=== PATIENT | female | born 1990 | race Hispanic/Latino ===

== ENCOUNTER 2017-06-26 19:46 | Emergency (ER) | payer OTHER, SELFPAY ==
[2017-06-26] MEDS ORDERED: Promethazine HCl 25 MG/ML VIAL ONE (23:24)
[2017-06-26] MEDS ORDERED: diphenhydrAMINE HCl 50 MG/ML 1 ML VIAL ONE (23:24)
[2017-06-26 23:38] LABS: #Eosinphils 0.3 thou/uL (0.0-0.7); #Lymphocytes 2.8 thou/uL (1.20-3.40); #Monocytes 0.6 thou/uL (0.11-0.59); #Neutrophils 4.8 thou/uL (1.40-6.50); %Basophils 0.5 % (0.0-1.0); %Eosinophils 3.5 % (0.0-10.0); Hematocrit 40.3 % (36.0-47.0); Mean Platelet Volume 8.9 fL (7.4-10.4); Red Blood Cell (RBC) Count 4.32 mill/uL (4.20-5.40); White Blood Cell (WBC) Count 8.5 thou/uL (4.8-10.8)
[2017-06-26 23:50] LABS: Bilirubin Negative (Negative); Blood, Urine Negative (Negative); Glucose, Urine (Dipstick) Negative (Negative); Ketone, Urine 15 mg/dL (Negative); Nitrite Negative (Negative); Protein, Urine (Dipstick) Negative (Neg-Trace)
[2017-06-26 23:56] LABS: Bacteria/HPF Rare-Few HPF (None Seen); Hyaline Casts/LPF 0-3 HYALINE CAST LPF (0-3 Hyaline); RBC/HPF 0-3 HPF (0-3); WBC/HPF 21-50 HPF (0-3)
[2017-06-27 00:06] LABS: Sperm/HPF None Seen HPF (None Seen)
[2017-06-27 00:15] LABS: ALT (SGPT) 16 U/L (8-55); AST (SGOT) 16 U/L (5-34); Alkaline Phosphatase 52 U/L (40-150); Anion Gap 13 mmol/L (10-20); BUN (Urea Nitrogen) 7 mg/dL (7.0-18.7); Bilirubin, Total 0.4 mg/dL (0.2-1.2); Calc. Creatinine Clearance 0 mL/min (70-130); Calcium 9.4 mg/dL (7.8-10.44); Carbon Dioxide 21 mmol/L (22-29); Chloride 105 mmol/L (98-107); Estimated GFR-MDRD Greater than 90; Globulin 3.2 g/dL (2.4-3.5); Protein, Total 7.2 g/dL (6.0-8.3)
[2017-06-27] MEDS ORDERED: Sodium Chloride 0.9% 100 ML ONE (00:36)
[2017-06-27] MEDS ORDERED: cefTRIAXone\\ROCEPHIN 1 GM VIAL ONE (00:36)
== END 2017-06-27 00:57 | disposition home or self-care (01) ==
LOC: ERS 19:46
DX: O99.281 Endocrine, nutritional and metabolic diseases complicating pregnancy, first trimester (principal); E86.0 Dehydration; O23.41 Unspecified infection of urinary tract in pregnancy, first trimester; O99.351 Diseases of the nervous system complicating pregnancy, first trimester; G43.909 Migraine, unspecified, not intractable, without status migrainosus; Z3A.10 10 weeks gestation of pregnancy
CPT/HCPCS: 80053; 81003; 81015; 85025; 85652; 86140; 87086; 96361; 96365; 96375; J0696; J1200; J2550; J7050

== ENCOUNTER 2017-09-21 20:32 | Day surgery (SDC) | payer OTHER ==
[2017-09-21 21:35] VITALS: BMI 40.6
[2017-09-21 21:58] LABS: Bilirubin Negative (Negative); Blood, Urine Negative (Negative); Clarity CLOUDY (Clear); Glucose, Urine (Dipstick) Negative (Negative); Leukocyte Moderate (Negative); Nitrite Negative (Negative); Protein, Urine (Dipstick) Negative (Neg-Trace); Specific Gravity, Urine 1.025 (1.002-1.036); pH, Urine 7.5 (5.0-9.0)
[2017-09-21 21:59] LABS: Bacteria/HPF 1+ HPF (None Seen); Hyaline Casts/LPF 0-3 HYALINE CAST LPF (0-3 Hyaline); Pathc Cast-AUWi Flag 0.27 (0-2.49); RBC/HPF 0-3 HPF (0-3); Squamous Epithelial 0-3 HPF (0-3); WBC/HPF 21-50 HPF (0-3)
[2017-09-22] MEDS ORDERED: Nitrofurantoin Monohyd/M-Cryst 100 MG CAP PO STA (00:02)
== END 2017-09-22 00:40 | disposition home or self-care (01) ==
LOC: L&D/OP 20:32
PROVIDERS: ATTEND Family Medicine
DX: O99.89 Other specified diseases and conditions complicating pregnancy, childbirth and the puerperium (principal); R10.30 Lower abdominal pain, unspecified; M54.9 Dorsalgia, unspecified; R03.0 Elevated blood-pressure reading, without diagnosis of hypertension; Z3A.22 22 weeks gestation of pregnancy; Z79.82 Long term (current) use of aspirin; Z79.899 Other long term (current) drug therapy; Z91.013 Allergy to seafood; Z98.890 Other specified postprocedural states
CPT/HCPCS: 81003; 81015; 87086; 87480; 87510; 87660; 99284

== ENCOUNTER 2017-10-09 10:10 | Emergency (ER) | payer OTHER ==
[2017-10-09] MEDS ORDERED: Insulin Regular 300 UNITS/3 ML VIAL ONE (12:27)
[2017-10-09] MEDS ORDERED: Dexamethasone 4 MG TAB PO SCH (13:15)
[2017-10-09] MEDS ORDERED: Dexamethasone 4 MG TAB ONE (13:22)
== END 2017-10-09 13:26 | disposition home or self-care (01) ==
LOC: ERS 10:10
DX: O99.512 Diseases of the respiratory system complicating pregnancy, second trimester (principal); J45.909 Unspecified asthma, uncomplicated; J98.8 Other specified respiratory disorders; Z3A.24 24 weeks gestation of pregnancy
CPT/HCPCS: 87804; J1815; J7620; J8540

== ENCOUNTER 2017-11-30 20:33 | Day surgery (SDC) | payer OTHER ==
[2017-11-30 21:04] VITALS: BP 119/64; TEMP 99.3; BMI 44.3
--- NOTE | 2017-11-30 21:51 | PDOC.LDHP ---
Labor and Delivery H&P Chief complaint: other (JENKINS and elevated BP at home 147/) HPI: 27yo at 32w2d by 7w sono here for elevated BP and JENKINS. Has cuff at home , monitors BPs and will get elevations in mild range on regular basis as well as in clinic. Today on wrist home cuff got 152/102 and 148/83. Pt noted JENKINS all day, has taken 500mg tylenol x 1 without relief. Denies scotomata, RUQ pain. Good FM. No ctx VB LOF. Current gestational age (weeks): 32 Due date: 01/23/18 Dating criteria: first trimester ultrasound Grav: 2 Para: 1 OB History Details: h/o GHTN at term last Prior CS for CPD Abnormal US findings: No Past Medical History: CHTN based on elevated BPs since 13 wk this Obesity Asthma Previous surgical history: low tranverse CS Allergies/Adverse Reactions: Allergies Allergy/AdvReac Type Severity Reaction Status Date / Time shrimp Allergy Severe Anaphylaxis Verified 09/21/17 21:31 Social history: none - Physical Exam Vital signs reviewed and normal: yes General: NAD Heart: RRR Lungs: CTAB Abdomen: gravid Extremeties: no edema FHT: category 1 [place] contractions every: quite - OB Labs Blood type: O RH: positive Antibody Screen: negative HIV: negative RPR: negative HEPSAg: negative 1 hour GCT: negative Rubella: immune - Assessment 27yo at 32w2d by 7w sono with CHTN and JENKINS and GERD sx. Elevated BP x 1 due to cuff malpositioning, all others wnl on serial measurements in triage x 1.5 hr. No evidence of SIPIH. Rec pt to take tylenol 2 tabs or benadryl for JENKINS. Cont BP log at home, bring cuff to next clinic visit to ensure accurate readings. Continued PIH warnings given. Tums for heartburn sx. FHT reassuring for gestational age. FU next week at [facility].
== END 2017-11-30 22:10 | disposition home or self-care (01) ==
LOC: L&D/OP 20:33
PROVIDERS: ATTEND Student in an Organized Health Care Education/Training Program
DX: O13.3 Gestational [pregnancy-induced] hypertension without significant proteinuria, third trimester (principal); O99.513 Diseases of the respiratory system complicating pregnancy, third trimester; J45.909 Unspecified asthma, uncomplicated; O99.613 Diseases of the digestive system complicating pregnancy, third trimester; K21.9 Gastro-esophageal reflux disease without esophagitis; O99.213 Obesity complicating pregnancy, third trimester; E66.9 Obesity, unspecified; Z68.44 Body mass index [BMI] 60.0-69.9, adult; Z91.013 Allergy to seafood; Z3A.32 32 weeks gestation of pregnancy; Z79.82 Long term (current) use of aspirin; Z79.899 Other long term (current) drug therapy
CPT/HCPCS: 59025; 99282

== ENCOUNTER 2018-01-09 16:03 | Inpatient (IN) | payer MEDICAID, OTHER, SELFPAY ==
[2018-01-09 16:25] VITALS: BMI 45.7
[2018-01-09 18:47] LABS: #Eosinphils 0.1 thou/uL (0.0-0.7); #Lymphocytes 2.3 thou/uL (1.20-3.40); #Monocytes 0.7 thou/uL (0.11-0.59); #Neutrophils 7.3 thou/uL (1.40-6.50); %Basophils 0.1 % (0.0-1.0); %Lymphocytes 21.8 % (21.0-51.0); %Monocytes 6.3 % (0.0-10.0); %Neutrophils 70.7 % (42.0-75.0); Hemoglobin 13.3 g/dL (12.0-16.0); Mean Corpuscular HGB CONC 33.6 g/dL (32.0-36.0); Mean Corpuscular Hemoglobin 29.6 pg (27.0-31.0); Mean Platelet Volume 8.4 fL (7.4-10.4); Platelet Count 231 thou/uL (130-400); RBC Distribution Width 13.7 % (11.5-14.5); White Blood Cell (WBC) Count 10.3 thou/uL (4.8-10.8)
--- NOTE | 2018-01-09 18:49 | PDOC.LDHP ---
Labor and Delivery H&P Chief complaint: other (Sent over from [facility] for elevated BP, rule out pre-e) HPI: 27 yo @ 38 weeks dated by 7 wk u/s comes in after having elevated BP at [facility] this afternoon. Pt reports having headache but thinks it is due to her being hungry. Had headache yesterday as well. Denies any vision changes or dizziness. Reports having swelling in feet, hands and nose. Also reports having some RUQ and right back pain. Reports irregular contractions at night. Denies any LOF, bleeding, or urinary sx's. Reports normal vaginal discharge. Current gestational age (weeks): 38 Due date: 01/23/18 Dating criteria: first trimester ultrasound Grav: 2 Para: 1 OB History Details: Hx of pre-eclampsia in prior Vaginitis infections Current complications: gestational hypertension Abnormal US findings: No Past Medical History: Asthma, Viral Meningitis infection back in February 2017 Current medications: pre-israel vitamins Previous surgical history: low tranverse CS, other (r. ankle surgery (2002)) - Physical Exam Vital signs reviewed and normal: yes Abnormal vital signs: Had one abnormal BP General: NAD Heart: RRR Lungs: CTAB Abdomen: other (Mild tenderness to palpation in RUQ and some mild pain on palpation of R. back) Extremeties: trace edema FHT: category 1 [place] contractions every: No contractions noted - OB Labs Blood type: O RH: positive Antibody Screen: negative HIV: negative RPR: negative HEPSAg: negative 1 hour GCT: negative GBS: unknown Rubella: non-immune - Assessment Rule out preeclampsia - Plan Plan: observation in L&D -: 27yo at 32w2d by 7w sono with CHTN and JENKINS -CMP, CBC, uric acid, urine protein, urine creatinine pending Elevated BP x 1 due to cuff malpositioning and while I was examining her. all others wnl on serial measurements in triage x 2hr. Will continue FHT monitoring and continue BP checks. Once labs get back, possibly let go home. Will let patient eat at this time and sees if helps with headache FHT reassuring for gestational age. Prior C/S -Plan for repeat Hx Pre-E -Took ppx aspirin prior in -Plan as above. <Anthony Gillespie - Last Filed: 04/24/18 19:18> <Irvin Luo - Hay Filed: 01/10/18 07:02> Allergies/Adverse Reactions: Allergies Allergy/AdvReac Type Severity Reaction Status Date / Time shrimp Allergy Severe Anaphylaxis Verified 09/21/17 21:31 Attending Addendum - Attending Addendum Date/Time: 01/10/18 0701 I personally evaluated the patient and discussed the management with Dr. Gillespie I agree with the History, Examination, Assessment and Plan documented above with any addition or exceptions noted below. <Irvin Luo - Hay Filed: 01/10/18 07:02>
[2018-01-09 19:07] LABS: ALT (SGPT) 16 U/L (8-55); AST (SGOT) 16 U/L (5-34); Albumin 3.6 g/dL (3.5-5.0); Alkaline Phosphatase 192 U/L (40-150); Anion Gap 14 mmol/L (10-20); BUN (Urea Nitrogen) 9 mg/dL (7.0-18.7); Bilirubin, Total 0.4 mg/dL (0.2-1.2); Calc. Creatinine Clearance 248 mL/min (70-130); Calcium 9.9 mg/dL (7.8-10.44); Carbon Dioxide 24 mmol/L (22-29); Chloride 104 mmol/L (98-107); Estimated GFR-MDRD Greater than 90; Globulin 3.3 g/dL (2.4-3.5); Glucose 76 mg/dL (70-105); Potassium 4.2 mmol/L (3.5-5.1); Protein, Total 6.9 g/dL (6.0-8.3); Sodium 138 mmol/L (136-145); Uric Acid 4.4 mg/dL (2.6-6.0)
[2018-01-09] MEDS ORDERED: Acetaminophen 325 MG TAB PO SCH (20:00)
[2018-01-09] MEDS ORDERED: Promethazine HCl 25 MG/ML VIAL IM PRN (23:32)
[2018-01-09] MEDS ORDERED: Ondansetron HCl/PF 4 MG/2 ML Vial IVP PRN (23:32)
[2018-01-09] MEDS ORDERED: Bicitra 30 ML UDCUP PO SCH (23:32)
[2018-01-09] MEDS ORDERED: Calcium Carbonate 500 MG ChewTAB PO PRN (23:32)
[2018-01-09] MEDS ORDERED: Acetaminophen 325 MG TAB PO PRN (23:32)
[2018-01-09] MEDS ORDERED: CEFAZOLIN/Water 2 GM/20 ML SYRINGE SLOW IVP SCH (23:32)
[2018-01-10 00:24] LABS: HBSAg Index 0.22 S/CO (0-0.99); Hep B Surf Ag Non-Reactive S/CO (NonReactive); Syphilis Antibody Nonreactive (Nonreactive); Syphilis Antibody Index 0.02 S/CO (<1.00 Non-Reactive)
[2018-01-10] MEDS ORDERED: Ondansetron HCl/PF 4 MG/2 ML Vial IVP PRN ×2 (06:51→07:52)
[2018-01-10] MEDS ORDERED: Lactated Ringer's 1,000 ML IV SCH (07:00)
[2018-01-10] MEDS ORDERED: Bupivacaine 0.75% W/DEXTROSE 8.25% 2 ML AMP ONE (07:46)
[2018-01-10] MEDS ORDERED: Metoclopramide HCl 10 MG/2 ML VIAL ONE (07:46)
[2018-01-10] MEDS ORDERED: Lidocaine 1% PF 5 ML VIAL ONE ×2 (07:47→08:15)
[2018-01-10] MEDS ORDERED: Oxytocin 10 UNITS/ML VIAL ONE ×2 (07:47→09:00)
[2018-01-10] MEDS ORDERED: Morphine PF 1 MG/ML SYR ONE (07:47)
[2018-01-10] MEDS ORDERED: Morphine Sulfate 2 MG/ML SYRINGE SLOW IVP PRN (07:51)
[2018-01-10] MEDS ORDERED: Ketorolac Tromethamine 30 MG/ML VIAL IVP PRN (07:52)
[2018-01-10] MEDS ORDERED: Naloxone HCl 0.4 mg/ml Vial IVP PRN ×2 (07:52)
[2018-01-10] MEDS ORDERED: Eucerin (Mineral Oil/Petrolatum,White) 30 gm Jar TOP PRN (07:52)
[2018-01-10] MEDS ORDERED: Naloxone HCl 0.4 mg/ml Vial IV PRN (07:52)
[2018-01-10] MEDS ORDERED: Promethazine HCl 25 MG/ML VIAL IM PRN (07:52)
[2018-01-10] MEDS ORDERED: Communication Order-Pharmacy FS SCH (08:00)
[2018-01-10] MEDS ORDERED: ePHEDrine/0.9% NaCl/PF SYRINGE 50 mg/10 ml ONE ×2 (08:00→12:31)
[2018-01-10 08:32] LABS: HIV (1/2) Antibody/Antigen Non-Reactive (NonReactive); HIV 1/2 INDEX 0.05 S/CO (<1.00)
[2018-01-10] MEDS ORDERED: Fentanyl 100 MCG/2 ML VIAL ONE (08:54)
[2018-01-10 08:58] LABS: Base Excess (BEa) -2.7 mEq/L (0 (+/-) 2.5)
--- NOTE | 2018-01-10 10:37 | PDOC.EVN ---
Event Note - Event Note Event Note: Postop Note Baby follow up: I was notified by nursery staff at approx 1010 this AM that the baby was found to have testicular torsion and hydrocele. Baby will be transferred to [facility]. Mother aware of findings.
--- NOTE | 2018-01-10 11:25 | OP ---
DATE OF SERVICE: 01/10/2018 FACULTY OPERATIVE NOTE FACULTY ATTESTATION INDICATION: In brief, I assumed call this morning at 0800 to find that this patient was scheduled for repeat as she had gestational hypertension at 38 weeks and a history of a prior . I arrived to find the patient already in the OR with the resident on-call (Dr. Leighton Quintero and Dr. Anthony Gillespie) already present. Anesthesia was present in the room. I assisted and scrubbed and participated with the surgery. PREOPERATIVE DIAGNOSES: 1. Prior x1. 2. A 38-week . 3. Gestational hypertension. POSTPROCEDURE DIAGNOSES: 1. Prior x1. 2. Status post repeat Pfannenstiel . PROCEDURES: 1. Repeat low transverse via Pfannenstiel. 2. Lysis of adhesions (1 cm thick uterine anterior serosal adhesion to the anterior abdominal wall). 3. Vacuum assisted delivery due to a nonengaged head (about 3 seconds of vacuum at 40 cm of water pressure). 4. Skin staple. SURGEON/STAFF: Renan Bateman M.D. RESIDENT: Leighton Quintero M.D. SAND BUFFER: Anthony Gillespie MD. ANESTHESIA: Spinal. ANTIBIOTICS: Ancef per protocol. IV fluids is about 2 liters crystalloid. URINE OUTPUT: Clear urine by Centeno (see OR record). ESTIMATED BLOOD LOSS: 600 mL COMPLICATIONS: None. FINDINGS: 1. vigorous male with a cord pH (arterial) of 7.23. 2. Please see full dictation by the residents. DESCRIPTION OF PROCEDURE: In brief, I assisted after the entry into the abdominal pelvic cavity was done. A thick anterior uterine adhesion was noted that was band like. I confirm that there was no bowel or other viscera attached to this and I put my finger around the adhesion to loop it. I then dissected this adhesion using Bovie cautery on cut mode without injury to surrounding structures. Hemostasis was assured. We were then able to place an Alfredito O retractor for delivery. Upon entry into the uterine cavity, it is a point to note that the baby's head was in a nonengaged station, therefore, after times by Dr. Quintero to deliver the head briefly, I called for a vacuum. A mushroom vacuum was applied for about 3 seconds at 40 mmHg without pop off. No complications were noted. No uterine extensions occurred during this delivery. Baby was vigorous. No nuchal cord was found. There were no complications with delivery. Uterus was closed in the usual fashion by the resident under my supervision and I assisted with closure as well. I was present until the skin was closed with ami. All counts were correct. Again, hemostasis was assured prior to closure at all levels. Please see the full dictation by the residents. MTDD
--- NOTE | 2018-01-10 11:53 | OP-2 ---
DATE OF PROCEDURE: 01/10/2018 RESIDENT SURGEON: Leighton Quintero M.D. ASSISTING SURGEON: Anthony Gillespie M.D. ATTENDING SURGEON: Renan Bateman M.D. PROCEDURE: Repeat low-transverse vacuum-assisted section. PREOPERATIVE DIAGNOSES: 1. Term intrauterine . 2. Gestational hypertension. 3. History of preeclampsia. POSTOPERATIVE DIAGNOSES: 1. Term intrauterine . 2. Gestational hypertension. 3. History of preeclampsia. 4. Wmlldeor-rw-yiknyp abdominal adhesions. 5. Thick 1 cm adhesion from anterior uterine fundus to anterior abdominal wall. ANESTHESIA: Spinal. INDICATIONS: Ms. Faisal Ordonez is a 27-year-old G2, P1-0-0-1 at 38.1 weeks ' gestation, who presented for L and D triage on 01/09/2018 for concern for gestational hypertension and preeclampsia rule out. She has a history of preeclampsia in previous that required delivery at 36 weeks. Blood pressures have been trending up in the clinic setting. Her laboratory data was negative; however, her blood pressures were mildly elevated overnight. She had been scheduled for repeat next week and after counseling elected to proceed today. PROCEDURE IN DETAIL: After risks, benefits, and alternatives were explained, the patient provided informed consent. Preoperative antibiotics of 2 grams cefazolin were administered. The patient was taken to the operating room and spinal anesthesia was initiated. She was prepped and draped in usual sterile fashion. A Pfannenstiel incision was made with scalpel and carried down to the level of fascia, which was sharply nicked. Subcutaneous fat was dissected away from the fascia bluntly. Fascial cut was extended bilaterally with Joy scissors. Inferior and superior edges of the fascia were elevated and from the rectus muscle bluntly and sharply. The rectus muscles were divided digitally and retracted manually. At this time, several filmy adhesions were noted between the peritoneum and uterus. The most prominent adhesion was an approximately 1 cm band between the anterior fundus and the anterior abdominal wall. After ensuring there was no bowel incorporated into this adhesion, it was released using Bovie cautery. An Alfredito O retractor was then placed. Bladder flap was created. A low-transverse score was made with scalpel. The uterus was entered bluntly with the Yankauer suction tip. Thin meconium-stained fluid was noted. The head was unable to be engaged in the hysterotomy, therefore a vacuum was applied. Maximum pressure was 40 cm of water and it was applied for approximately 3 seconds. One pull was needed to extract the child. No pop-offs occurred. Remainder of the body was delivered without difficulty. Cord was cut and clamped. Cord gas segment was obtained as was cord blood. The was handed to the awaiting team. Apgars were 8 and 9 at 1 and 5 minutes respectively and the arterial pH at time of delivery was 7.24. The edges of the hysterotomy were identified and closed using a #1 Monocryl suture in the running-locking fashion. One hyjgcd-yx-iefdz stitch was needed to achieve hemostasis along the left apex of the hysterotomy. The hysterotomy was inspected and noted to be hemostatic at this time. The site of the adhesion release of the former adhesion was inspected and hemostasis was achieved with Bovie cautery. The abdominal cavity was irrigated and suctioned. No clots or bleeding are noted at this time. Fascia was closed using a running, nonlocking 0 PDS. Subcutaneous fat was closed using a 2-0 plain gut suture in the running, nonlocking fashion. Skin was reapproximated with ami. The patient tolerated the procedure well and was taken to the recovery room in stable condition. START TIME: 0830 hours. INFANT DELIVERY TIME: 0848 hours. ESTIMATED BLOOD LOSS: 750 mL. COMPLICATIONS: None. SPECIMENS: Cord blood and segments collected and sent for blood type and cord gas analysis. FINDINGS: Grossly normal what presumed to be LGA viable male infant with Apgars of 8 and 9 at 1 and 5 minutes respectively. Grossly normal placenta with 3-vessel cord discarded. DRAINS: Centeno catheter draining clear urine. TOTAL FLUIDS GIVEN DURING THE PROCEDURE: 2000 mL crystalloid. MTDD
[2018-01-10] MEDS ORDERED: Meperidine HCl/PF 25 MG/ML VIAL IM PRN (12:05)
[2018-01-10] MEDS: Lactated Ringer's 1,000 ML IV SCH ×2 (12:08→17:50)
[2018-01-10] MEDS: diphenhydrAMINE 25 MG CAP PO PRN (23:30)
[2018-01-11] MEDS: Lactated Ringer's 1,000 ML IV SCH ×3 (01:39→15:17)
[2018-01-11] MEDS: Docusate Calcium (SURFAK) 240 MG CAP PO SCH ×3 (01:39→21:34)
[2018-01-11] MEDS: Simethicone Chewable 80 MG TAB PO PRN ×4 (03:42→21:34)
[2018-01-11 05:23] LABS: Hemoglobin 12.4 g/dL (12.0-16.0); Mean Corpuscular HGB CONC 33.7 g/dL (32.0-36.0); Mean Corpuscular Hemoglobin 29.7 pg (27.0-31.0); Mean Corpuscular Volume 87.9 fl (81.0-99.0); Mean Platelet Volume 7.8 fL (7.4-10.4); Platelet Count 217 thou/uL (130-400); RBC Distribution Width 13.8 % (11.5-14.5); Red Blood Cell (RBC) Count 4.18 mill/uL (4.20-5.40); White Blood Cell (WBC) Count 11.4 thou/uL (4.8-10.8)
--- NOTE | 2018-01-11 06:39 | PDOC.PP ---
Post Progress Note Post Day #: 2 Subjective: CC: Anxious HPI: Patient anxious to go to [facility] to be with her child. Informed provider that torsion was likely outside of 6 hour window and they were unable to salvage testicle. Informed her she would likely need additional stay in hospital since she had a C/S and had extensive adhesions. PO intake tolerated: yes Flatus: yes Ambulation: yes Vital Signs (12 hours) Temp Pulse Resp BP BP 01/11/18 06:00 18 01/11/18 03:30 97.5 F L 104 H 20 119/60 01/11/18 02:00 18 01/10/18 23:40 98.6 F 111 H 18 106/56 L 01/10/18 22:00 20 01/10/18 19:30 98.7 F 109 H 20 116/66 Weight Weight 109.769 kg - Physical Examination General: NAD Cardiovascular: no m/r/g, RRR Respiratory: clear to auscultation bilaterally, non-labored breathing Abdominal: + bowel sounds, lochia, appropriately TTP Extremities: negative homans (B) Skin: CS incision dry & intact, no rash Neurological: no gross focal deficits Psychiatric: A&Ox3, normal affect Result Diagrams: 01/11/18 05:08 01/09/18 17:57 Additional Labs: Post Labs Blood Type O POSITIVE 01/09/18 17:56 Hep Bs Antigen Non-Reactive S/CO (NonReactive) 01/09/18 21:23 (1) Gestational hypertension Code(s): O13.9 - GESTATIONAL HTN W/O SIGNIFICANT PROTEINURIA, UNSP TRIMESTER Status: Acute QualifierTitle: Trimester: third trimester Qualified Code(s): O13.3 - Gestational [-induced] hypertension without significant proteinuria, third trimester Comment: s/p C/S at 38.1 weeks. Progessing well. BP WNL. Pain controlled. If BP remain normal, will start NSAIDs for pain management. Plan for d/c tomorrow or Monday. (2) delivery delivered Code(s): O82 - ENCOUNTER FOR DELIVERY WITHOUT INDICATION Status: Acute Comment: extensive adhesions during surgery. monitor for signs of ileus. <Leighton Quintero - Last Filed: 01/11/18 06:37> Vital Signs (12 hours) Temp Pulse Resp BP BP 01/11/18 06:00 18 01/11/18 03:30 97.5 F L 104 H 20 119/60 01/11/18 02:00 18 01/10/18 23:40 98.6 F 111 H 18 106/56 L 01/10/18 22:00 20 01/10/18 19:30 98.7 F 109 H 20 116/66 Weight Weight 242 lb Result Diagrams: 01/11/18 05:08 01/09/18 17:57 Additional Labs: Post Labs Blood Type O POSITIVE 01/09/18 17:56 Hep Bs Antigen Non-Reactive S/CO (NonReactive) 01/09/18 21:23 (1) delivery delivered Code(s): O82 - ENCOUNTER FOR DELIVERY WITHOUT INDICATION Status: Acute Comment: extensive adhesions during surgery. monitor for signs of ileus. - Assessment/Plan Faculty note: Patient seen at bedside with residents. Baby had the surgery yesterday for testicular torsion..not able to save testes. Mother is well. Incision C/D/I with ami. Sarah po. Ambulate today. Testicular torsion inutero reviewed with her in Pashto by me. <Renan Bateman - Last Filed: 01/11/18 06:53>
[2018-01-11] MEDS: HYDROcodone/Acetaminophen 5/325 mg Tablet PO PRN ×3 (08:42→21:35)
[2018-01-11] MEDS: Prenatal Vitamin 1 TAB PO SCH (08:42)
[2018-01-12] MEDS: diphenhydrAMINE 25 MG CAP PO PRN (00:04)
[2018-01-12] MEDS: Lactated Ringer's 1,000 ML IV SCH ×2 (02:46→15:55)
[2018-01-12] MEDS: HYDROcodone/Acetaminophen 5/325 mg Tablet PO PRN ×3 (04:04→19:55)
[2018-01-12] MEDS: Simethicone Chewable 80 MG TAB PO PRN (04:05)
--- NOTE | 2018-01-12 07:23 | PDOC.PP ---
Post Progress Note Post Day #: 2 Subjective: CC: Mild pain HPI: No concerns. Eager to go home since her son may be discharged today. reports mild pain with walking. Denies fever or chills. PO intake tolerated: yes Flatus: yes Ambulation: yes Vital Signs (12 hours) Temp Pulse Resp BP Pulse Ox 01/12/18 04:05 98.1 F 113 H 20 123/65 96 01/11/18 23:43 98.7 F 105 H 18 118/63 97 01/11/18 20:05 98.7 F 104 H 18 121/68 97 Weight Weight 109.769 kg - Physical Examination General: NAD Cardiovascular: no m/r/g, RRR Respiratory: clear to auscultation bilaterally, non-labored breathing Abdominal: + bowel sounds, lochia, no distention, appropriately TTP Fundus firm & at: umbilicus Extremities: negative homans (B) Skin: CS incision dry & intact, no rash Neurological: no gross focal deficits Psychiatric: A&Ox3, normal affect Result Diagrams: 01/11/18 05:08 01/09/18 17:57 Additional Labs: Post Labs Blood Type O POSITIVE 01/09/18 17:56 Hep Bs Antigen Non-Reactive S/CO (NonReactive) 01/09/18 21:23 (1) Gestational hypertension Code(s): O13.9 - GESTATIONAL HTN W/O SIGNIFICANT PROTEINURIA, UNSP TRIMESTER Status: Acute QualifierTitle: Trimester: third trimester Qualified Code(s): O13.3 - Gestational [-induced] hypertension without significant proteinuria, third trimester Comment: s/p C/S at 38.1 weeks. Progessing well. BP WNL. Pain controlled. Plan for d/c tomorrow. (2) delivery delivered Code(s): O82 - ENCOUNTER FOR DELIVERY WITHOUT INDICATION Status: Acute Comment: extensive adhesions during surgery. monitor for signs of ileus. passing gas today. (3) Tachycardia Code(s): R00.0 - TACHYCARDIA, UNSPECIFIED Status: Acute Comment: has gotten progressively worse since yesterday. Afebrile. incision clean and dry. Will keep overnight. Low threashold for starting abx. <Leighton Quintero - Last Filed: 01/12/18 07:21> Vital Signs (12 hours) Temp Pulse Resp BP Pulse Ox 01/12/18 04:05 98.1 F 113 H 20 123/65 96 01/11/18 23:43 98.7 F 105 H 18 118/63 97 Weight Weight 242 lb Result Diagrams: 01/11/18 05:08 01/09/18 17:57 Additional Labs: Post Labs Blood Type O POSITIVE 01/09/18 17:56 Hep Bs Antigen Non-Reactive S/CO (NonReactive) 01/09/18 21:23 <Irvin Luo - Last Filed: 01/12/18 08:39> Attending Addendum - Attending Addendum Date/Time: 01/12/1838 I personally evaluated the patient and discussed the management with Dr. Quintero I agree with the History, Examination, Assessment and Plan documented above with any addition or exceptions noted below. <Irvin Luo - Hay Filed: 01/12/18 08:39>
[2018-01-12] MEDS: Docusate Calcium (SURFAK) 240 MG CAP PO SCH ×2 (10:08→19:54)
[2018-01-12] MEDS: Prenatal Vitamin 1 TAB PO SCH (10:08)
[2018-01-13] MEDS ORDERED: Milk Of Magnesia 30 ML UDCUP PO PRN (00:08)
--- NOTE | 2018-01-13 08:16 | PDOC.PP ---
Post Progress Note Post Day #: 3 Subjective: 27 yo delivered via repeat LTCS at 38.0 weeks due to elevated BP. Pt doing well today with no specific complaints PO intake tolerated: yes Flatus: yes Ambulation: yes Vital Signs (12 hours) Temp Pulse Resp BP 01/13/18 06:00 98.5 F 90 18 115/60 Weight Weight 109.769 kg - Physical Examination General: NAD Cardiovascular: no m/r/g, RRR Respiratory: clear to auscultation bilaterally Abdominal: + bowel sounds, appropriately TTP Extremities: negative homans (B) Skin: CS incision dry & intact, no rash Psychiatric: A&Ox3, normal affect Result Diagrams: 01/11/18 05:08 01/09/18 17:57 Additional Labs: Post Labs Blood Type O POSITIVE 01/09/18 17:56 Hep Bs Antigen Non-Reactive S/CO (NonReactive) 01/09/18 21:23 (1) Gestational hypertension Code(s): O13.9 - GESTATIONAL HTN W/O SIGNIFICANT PROTEINURIA, UNSP TRIMESTER Status: Acute Qualifiers: Trimester: third trimester Qualified Code(s): O13.3 - Gestational [ -induced] hypertension without significant proteinuria, third trimester Comment: Progressing well. Ready to dc today. (2) Tachycardia Code(s): R00.0 - TACHYCARDIA, UNSPECIFIED Status: Acute Comment: Resolved, low concern for infection. Advised pt to call or go to ED after dc if she has increasing pain, fever, n/v, or redness at site. (3) delivery delivered Code(s): O82 - ENCOUNTER FOR DELIVERY WITHOUT INDICATION Status: Acute Comment: POD 2. Pt doing well. Incision is clean and dry. Pain is controlled.
[2018-01-13 08:41] VITALS: BP 130/76; TEMP 97.9
[2018-01-13] MEDS: Prenatal Vitamin 1 TAB PO SCH (09:32)
[2018-01-13] MEDS: Docusate Calcium (SURFAK) 240 MG CAP PO SCH (09:32)
[2018-01-13] MEDS: HYDROcodone/Acetaminophen 5/325 mg Tablet PO PRN (13:07)
== END 2018-01-13 18:30 | disposition home or self-care (01) | DRG 766 ==
LOC: L&D/OP 16:03 → L&D 20:45 → 3SW 22:43 → L&D 01-10 07:46 → 3SW 01-10 11:43
PROVIDERS: ADMIT Obstetrics & Gynecology; ATTEND Obstetrics & Gynecology
PROC: 10D00Z1 Extraction of Products of Conception, Low, Open Approach (ICD-10-PCS; principal; 2018-01-10)
PROC: 0UN90ZZ Release Uterus, Open Approach (ICD-10-PCS; 2018-01-10)
DX: O13.4 Gestational [pregnancy-induced] hypertension without significant proteinuria, complicating childbirth (principal); N73.6 Female pelvic peritoneal adhesions (postinfective); O34.211 Maternal care for low transverse scar from previous cesarean delivery; O99.89 Other specified diseases and conditions complicating pregnancy, childbirth and the puerperium; R00.0 Tachycardia, unspecified; Z91.013 Allergy to seafood; Z3A.38 38 weeks gestation of pregnancy; Z37.0 Single live birth
CPT/HCPCS: 36415; 51702; 80053; 82570; 82805; 84156; 84550; 85025; 85027; 86780; 86850; 86900; 86901; 87340; 87389; 99285; J0595; J2001; J2274; J2310; J2550; J2590; J2765; J3010; J3490

== ENCOUNTER 2019-03-30 13:08 | Emergency (ER) | payer SELFPAY ==
--- NOTE | 2019-03-30 13:45 | RAD ---
EXAM: Chest Two Views 03/30/2019 1:43 PM HISTORY: Shortness of breath COMPARISON: None. FINDINGS: Heart: Normal in size and contour. Pulmonary vessels: Normal. Costophrenic angles: Clear. Lungs: No confluent pneumonia, overt edema, pleural effusion, or other acute process. Pneumothorax: None. Osseous structures:Intact. Additional findings: None. IMPRESSION: No significant acute intrathoracic disease.
== END 2019-03-30 14:48 | disposition home or self-care (01) ==
LOC: ERS 13:08
DX: J45.909 Unspecified asthma, uncomplicated (principal); F41.9 Anxiety disorder, unspecified
CPT/HCPCS: 71046

== ENCOUNTER 2020-08-31 15:23 | Emergency (ER) | payer SELFPAY | END 2020-08-31 18:16 | disposition left against medical advice (07) | LOC: ERS 15:23 | DX: Z53.21 Procedure and treatment not carried out due to patient leaving prior to being seen by health care provider (principal) ==

== ENCOUNTER 2020-09-11 14:55 | Emergency (ER) | payer SELFPAY ==
[2020-09-11 15:48] LABS: #Eosinphils 0.2 thou/uL (0.0-0.7); #Lymphocytes 2.8 thou/uL (1.20-3.40); #Monocytes 0.7 thou/uL (0.11-0.59); #Neutrophils 5.1 thou/uL (1.40-6.50); %Basophils 0.5 % (0.0-1.0); %Eosinophils 1.9 % (0.0-10.0); %Lymphocytes 31.7 % (21.0-51.0); %Monocytes 7.7 % (0.0-10.0); %Neutrophils 58.1 % (42.0-75.0); Hemoglobin 13.5 g/dL (12.0-16.0); Mean Corpuscular HGB CONC 34.7 g/dL (32.0-36.0); Mean Corpuscular Hemoglobin 31.5 pg (27.0-31.0); Mean Corpuscular Volume 90.6 fL (78.0-98.0); Mean Platelet Volume 8.8 fL (7.4-10.4); Platelet Count 214 thou/uL (130-400); RBC Distribution Width 11.4 % (11.5-14.5); Red Blood Cell (RBC) Count 4.28 mill/uL (4.20-5.40); White Blood Cell (WBC) Count 8.7 thou/uL (4.8-10.8)
[2020-09-11 15:54] LABS: Bilirubin Negative (Negative); Blood, Urine Negative (Negative); Clarity Clear (Clear); Glucose, Urine (Dipstick) Normal (Negative); Ketone, Urine Negative (Negative); Leukocyte 75 Leu/uL (Negative); Nitrite Negative (Negative); Protein, Urine (Dipstick) Negative (Neg-Trace); RBC/HPF 0-3 HPF (0-3); Specific Gravity, Urine 1.017 (1.002-1.036); Urobilinogen Normal mg/dL (Less than 2); WBC/HPF 0-3 HPF (0-3); pH, Urine 6.5 (5.0-9.0)
[2020-09-11 15:55] LABS: Bacteria/HPF Rare-Few HPF (None Seen)
--- NOTE | 2020-09-11 15:55 | RAD ---
Chest AP view INDICATION: Weakness dizziness and chills COMPARISON: March 30, 2019 FINDINGS: Lungs: The lungs are clear Cardiac silhouette: The cardiomediastinal silhouette appears within normal limits. Pulmonary vasculature: Normal Pleural spaces: No pleural effusion or pneumothorax is demonstrated. Upper abdomen: No abnormality seen. Osseous structures: No acute osseous abnormality. Additional findings: None. IMPRESSION: No acute cardiopulmonary abnormality.
[2020-09-11 16:17] LABS: ALT (SGPT) 29 U/L (8-55); AST (SGOT) 19 U/L (5-34); Albumin 3.9 g/dL (3.5-5.0); Alkaline Phosphatase 58 U/L (40-110); Anion Gap 12 mmol/L (10-20); BUN (Urea Nitrogen) 8 mg/dL (7.0-18.7); Bilirubin, Total 0.3 mg/dL (0.2-1.2); Calc. Creatinine Clearance 0 mL/min (70-130); Calcium 9.4 mg/dL (7.8-10.44); Carbon Dioxide 22 mmol/L (22-29); Chloride 107 mmol/L (98-107); Globulin 3.2 g/dL (2.4-3.5); Glucose 112 mg/dL (70-105); Potassium 3.4 mmol/L (3.5-5.1); Protein, Total 7.1 g/dL (6.0-8.3); Sodium 138 mmol/L (136-145)
== END 2020-09-11 16:35 | disposition home or self-care (01) ==
LOC: ERS 14:55
DX: R53.81 Other malaise (principal); R68.83 Chills (without fever); Z20.828 Contact with and (suspected) exposure to other viral communicable diseases
CPT/HCPCS: 71045; 80053; 81003; 81015; 85025; 93005

== ENCOUNTER 2020-09-19 17:22 | Emergency (ER) | payer SELFPAY ==
--- NOTE | 2020-09-19 18:25 | ULT ---
Obstetric sonogram first trimester HISTORY: Vaginal bleeding. Early . FINDINGS: Transabdominal imaging. Gestational sac within the endometrial cavity contains a small yolk sac and pole. Heart motion at 160 bpm. Measurements correlate with 9 weeks 5 days gestational age, giving an estimated date of delivery of . No free fluid within the maternal pelvis. Each ovary has normal appearance and demonstrates good color and spectral Doppler flow. IMPRESSION : Single intrauterine gestation estimated gestational age 9 weeks 5 days. No abnormalities are demonstr ated.
[2020-09-19 18:28] LABS: #Eosinphils 0.4 thou/uL (0.0-0.7); #Lymphocytes 3.3 thou/uL (1.20-3.40); #Monocytes 0.5 thou/uL (0.11-0.59); %Basophils 0.2 % (0.0-1.0); %Eosinophils 4.1 % (0.0-10.0); %Lymphocytes 35.7 % (21.0-51.0); %Monocytes 5.4 % (0.0-10.0); %Neutrophils 54.7 % (42.0-75.0); Hemoglobin 12.6 g/dL (12.0-16.0); Mean Corpuscular HGB CONC 33.8 g/dL (32.0-36.0); Mean Corpuscular Hemoglobin 30.8 pg (27.0-31.0); Mean Corpuscular Volume 91.1 fL (78.0-98.0); Mean Platelet Volume 8.5 fL (7.4-10.4); Platelet Count 210 thou/uL (130-400); RBC Distribution Width 11.2 % (11.5-14.5); Red Blood Cell (RBC) Count 4.08 mill/uL (4.20-5.40); White Blood Cell (WBC) Count 9.1 thou/uL (4.8-10.8)
[2020-09-19 18:51] LABS: ALT (SGPT) 30 U/L (8-55); AST (SGOT) 30 U/L (5-34); Alkaline Phosphatase 57 U/L (40-110); Anion Gap 12 mmol/L (10-20); BUN (Urea Nitrogen) 9 mg/dL (7.0-18.7); Bilirubin, Total 0.5 mg/dL (0.2-1.2); Calc. Creatinine Clearance 0 mL/min (70-130); Calcium 9.2 mg/dL (7.8-10.44); Carbon Dioxide 24 mmol/L (22-29); Chloride 104 mmol/L (98-107); Globulin 3.2 g/dL (2.4-3.5); Glucose 86 mg/dL (70-105); Potassium 3.4 mmol/L (3.5-5.1); Protein, Total 7.2 g/dL (6.0-8.3); Sodium 137 mmol/L (136-145)
[2020-09-19 20:36] LABS: Bilirubin Negative (Negative); Blood, Urine Negative (Negative); Clarity Clear (Clear); Glucose, Urine (Dipstick) Normal (Negative); Ketone, Urine 60 mg/dL (Negative); Leukocyte Negative Leu/uL (Negative); Nitrite Negative (Negative); Protein, Urine (Dipstick) Negative (Neg-Trace); Specific Gravity, Urine 1.022 (1.002-1.036)
== END 2020-09-19 21:17 | disposition home or self-care (01) ==
LOC: ERS 17:22
DX: O20.9 Hemorrhage in early pregnancy, unspecified (principal); O99.511 Diseases of the respiratory system complicating pregnancy, first trimester; J45.909 Unspecified asthma, uncomplicated; Z3A.10 10 weeks gestation of pregnancy
CPT/HCPCS: 36415; 76856; 80053; 81003; 84702; 85025; 86900; 86901

== ENCOUNTER 2020-11-23 09:34 | Outpatient (CLI) | payer OTHER | END 2020-11-23 09:35 | disposition home or self-care (01) | LOC: BICULT 09:34 | PROVIDERS: ATTEND Family Medicine | DX: O09.892 Supervision of other high risk pregnancies, second trimester (principal) | CPT/HCPCS: 76805 ==